=== PATIENT | male | born 1930 | race Caucasian/White ===

== ENCOUNTER → 2017-05-17 | Day surgery (SDC) | payer MEDICARE, OTHER ==
[~2017-05-17] MED LIST: ACETYLCHOLINE OPHTH SOLN 1% 2ML (MIOCHOL-E) As Ordered; BALANCED SALT IRRIGATION SOLUTION 500ML BAG (FOR OR EYE MACHINE) As Ordered; CEFUROXIME 1MG/0.1ML INTRACAMERAL INJ As Ordered; CYCLOPENTOLATE 2% OPHTH SOLN 2ML BTL As Ordered; HEALON DUET (HEALON 10MG/ML 0.55ML & HEALON ENDOCOAT 30MG/ML 0.85ML) As Ordered; LIDOCAINE 1% SDV 5 ML VIAL As Ordered; MIDAZOLAM INJ 2 MG/2 ML VIAL (J2250) As Ordered; OFLOXACIN 0.3 % (OCUFLOX) OPTH SOL 5ML As Ordered; OFLOXACIN 0.3 % (OCUFLOX) OPTH SOL 5ML OD; PHENYLEPHRINE 2.5% OPHTH SOL 2ML As Ordered; POVIDONE-IODINE 5% OPHTH PREP SOL 30ML As Ordered; SLF 3 ML SYR IV; TROPICAMIDE 1% OPHTH SOLN 2ML As Ordered; TROPICAMIDE 1% OPHTH SOLN 2ML OD; fentaNYL 100 MCG/2 ML INJECTION (J3010) As Ordered
[2017-05-17] MEDS: PHENYLEPHRINE 2.5% OPHTH SOL 2ML OD (07:17)
[2017-05-17] MEDS: LIDOCAINE 3.5 % 1ML OPHTH TOPICAL GEL OU (07:18)
[2017-05-17] MEDS: CYCLOPENTOLATE 2% OPHTH SOLN 2ML BTL OD (07:18)
[2017-05-17] MEDS: PHENYLEPHRINE HCL 10 % OPHTH. SOL 5ML OD (07:40)
[2017-05-17 08:11] LABS: INR 2.08; PROTHROMBIN TIME 24.1 SECONDS (12.4-14.5)
== END | disposition home or self-care (01) ==
LOC: M SDC 06:50
DX: H25.11 Age-related nuclear cataract, right eye (principal); Z53.09 Procedure and treatment not carried out because of other contraindication; R79.1 Abnormal coagulation profile
CPT/HCPCS: 85610

== ENCOUNTER 2017-05-30 07:07 | Day surgery (SDC) | payer MEDICARE, OTHER ==
[~2017-05-30 07:07] MED LIST changes: +ACETAMINOPHEN 325 MG TAB PO; -ACETYLCHOLINE OPHTH SOLN 1% 2ML (MIOCHOL-E) As Ordered; -BALANCED SALT IRRIGATION SOLUTION 500ML BAG (FOR OR EYE MACHINE) As Ordered; -CEFUROXIME 1MG/0.1ML INTRACAMERAL INJ As Ordered; -CYCLOPENTOLATE 2% OPHTH SOLN 2ML BTL As Ordered; -HEALON DUET (HEALON 10MG/ML 0.55ML & HEALON ENDOCOAT 30MG/ML 0.85ML) As Ordered; -LIDOCAINE 1% SDV 5 ML VIAL As Ordered; -MIDAZOLAM INJ 2 MG/2 ML VIAL (J2250) As Ordered; -OFLOXACIN 0.3 % (OCUFLOX) OPTH SOL 5ML As Ordered; -OFLOXACIN 0.3 % (OCUFLOX) OPTH SOL 5ML OD; -PHENYLEPHRINE 2.5% OPHTH SOL 2ML As Ordered; +PHENYLEPHRINE HCL 10 % OPHTH. SOL 5ML OD; -POVIDONE-IODINE 5% OPHTH PREP SOL 30ML As Ordered; +PROPARACAINE 0.5% OPHTH SOL 15ML XX; -SLF 3 ML SYR IV; -TROPICAMIDE 1% OPHTH SOLN 2ML As Ordered; -TROPICAMIDE 1% OPHTH SOLN 2ML OD; -fentaNYL 100 MCG/2 ML INJECTION (J3010) As Ordered
[2017-05-30] MEDS: OFLOXACIN 0.3 % (OCUFLOX) OPTH SOL 5ML OD (08:00)
[2017-05-30] MEDS: CYCLOPENTOLATE 2% OPHTH SOLN 2ML BTL OD (08:00)
[2017-05-30] MEDS: LIDOCAINE 3.5 % 1ML OPHTH TOPICAL GEL OU (08:00)
[2017-05-30] MEDS: TROPICAMIDE 1% OPHTH SOLN 2ML OD (08:00)
[2017-05-30] MEDS: PHENYLEPHRINE 2.5% OPHTH SOL 2ML OD (08:00)
[2017-05-30 08:05] LABS: INR 1.37; PROTHROMBIN TIME 17.2 SECONDS (12.4-14.5)
[2017-05-30 08:06] LABS: PARTIAL THROMBOPLASTIN TIME 33.6 SECONDS (26.8-37.9)
[2017-05-30] MEDS ORDERED: fentaNYL 100 MCG/2 ML INJECTION (J3010) As Ordered (08:32)
[2017-05-30] MEDS ORDERED: MIDAZOLAM INJ 2 MG/2 ML VIAL (J2250) As Ordered (08:33)
[2017-05-30] MEDS: POVIDONE-IODINE 5% OPHTH PREP SOL 30ML As Ordered (09:01)
[2017-05-30] MEDS: BALANCED SALT IRRIGATION SOLUTION 500ML BAG (FOR OR EYE MACHINE) As Ordered (09:01)
[2017-05-30] MEDS: LIDOCAINE 1% SDV 5 ML VIAL As Ordered (09:01)
[2017-05-30] MEDS: HEALON DUET (HEALON 10MG/ML 0.55ML & HEALON ENDOCOAT 30MG/ML 0.85ML) As Ordered (09:01)
[2017-05-30] MEDS: AcetaZOLAMIDE 500 MG ER CAP PO (09:40)
[2017-05-30] MEDS: KETOROLAC 0.5% OPHTH SOLN XX (09:40)
[2017-05-30] MEDS ORDERED: TRIMETHOBENZAMIDE 300 MG CAP PO (09:45)
== END 2017-05-30 09:57 | disposition home or self-care (01) ==
LOC: M SDC 07:07
DX: H25.12 Age-related nuclear cataract, left eye (principal); H57.03 Miosis; I48.91 Unspecified atrial fibrillation; Z95.0 Presence of cardiac pacemaker; Z85.46 Personal history of malignant neoplasm of prostate; F32.9 Major depressive disorder, single episode, unspecified; Z92.21 Personal history of antineoplastic chemotherapy; K21.9 Gastro-esophageal reflux disease without esophagitis; Z88.0 Allergy status to penicillin; Z79.01 Long term (current) use of anticoagulants; Z79.82 Long term (current) use of aspirin; Z79.899 Other long term (current) drug therapy
CPT/HCPCS: 66982